=== PATIENT | male | born 1995 | race Caucasian/White ===

== ENCOUNTER 2018-11-03 09:00 | Outpatient (RCR) | payer OTHER, SELFPAY ==
--- NOTE | 2018-11-03 10:10 | BH.SGPN.GN ---
Behaviors/Verbalizations/Mental Status: [Client maintained good eye contact, casually and neatly dressed, appropriate grooming, motor activity WNL, speech appropriate rate and tone, mood anxious and dysthymic, affect constricted, thoughts linear and logical, no evidence of delusions or hallucinations reported or observed] Client Response/Progress/Benefit: [Client receptive of session and indicated connecting with topic of stress - did well to contribute to group discussion on what causes stress and the impacts of stress on mental health. Shared that stress can lead to maladaptive coping skills or increased anxiety to point of panic. Provided personal experience of overwhelming stress leading him to quit his job working for the [employer]. Client appeared to connect with information provided regarding differences between eustress vs. distress. Client was able to reflect upon current personal stressors through completion of stress identification worksheet. Current stressors include: money, mental health, having a child on the way, his future, and negative or intrusive thoughts. Benefitted from increasing awareness of current stressors and the impact they may be having on ability to manage mental health symptoms. Client recommended continued IOP tx to improve stress management, decrease intrusive thoughts, and prevent decompensation] Narrative Note: []
--- NOTE | 2018-11-03 10:15 | BH.SGPN.GN ---
Behaviors/Verbalizations/Mental Status: []Pt eye contact good, casually dressed, motor activity appropriate, speech normal rate and tone, mood anxious and dysthymic, constricted affect, thoughts linear and intact, no evidence of delusions or hallucinations. Client Response/Progress/Benefit: []Pt passive participant as evidenced by pt not contributing his thoughts and ideas to discussion, appeared to listen attentively to peers comments. Pt seemed to agree with peers about importance of being resilient so can bounce back from hardships or personal crises. Pt showed increased engagement in small group discussion about the various strategies that can help strengthen resilience. Pt seemed to benefit from increased awareness of what strategies can help strengthen resilience. Narrative Note: []
--- NOTE | 2018-11-03 11:15 | BH.SGPN.GN ---
Behaviors/Verbalizations/Mental Status: []Client alert and oriented, neatly dressed and groomed. Eye contact fair. Motor activity appropriate. Speech within normal limits. Affect flat, mood anxious. Thoughts linear, logical, no signs of hallucinations or delusions Client Response/Progress/Benefit: []Client responded somewhat well to session, quiet, but engaged in activity. Client participated in the activity. Client listened as the group reviewed strategies to increase resilience. Client nodded in agreement that using supports can help someone become more resilient. Client received a stress ball to help client remember the resilience factors. Client reported he would like to increase his resilience by increasing his acceptance of events in life. Client shared ?I want to change the way I view things.? Client appeared to benefit from setting a goal to increase his resilience. Client?s first day of PHP. Client to continue PHP to prevent decompensation and learn how to manage his OCD.
--- NOTE | 2018-11-03 14:58 | BH.MDN_ITS ---
Multi-Disciplinary Note - Note 45-min Individual Time Started:: 12:30 Date: 11/03/18 Purpose of session/treatment goals addressed:: The purpose of this session was to address client's current symptoms, stressors, and thoughts on his first day. Other topics included intrusive thoughts and expectations for therapy. Eye Contact:: Good Motor Activity:: Restless Appearance:: Casual Speech:: Tangential, Rapid Mood:: Anxious Affect:: Constricted Thoughts:: Circular, No evidence of hallucinations/delusions noted Staff Interventions:: Therapist used active listening and open-ended questions to explore client's current symptoms, stressors, and thoughts on his first day. Therapist provided clarification of PHP structure and helped client process his first experience in group. Therapist gathered information on client's treatment goals and gently challenged client on his expectations for progress. Therapist provided psychoeducation and gave client readings from the book Overcoming Unwanted Intrusive Thoughts. This therapist will not be client's ongoing PHP counselor. Therapist to communicate session with client's PHP therapist. Client Response:: Client responded somewhat well to session, reporting ambivalence to continuing the program as he feels more normal than other group members. Therapist and client processed client's thoughts and client was receptive to challenging his perspective. Client was encouraged to focus on his personal treatment goals while in PHP. Client reports he continues to have panic attacks, intrusive thoughts, and anxiety. Client wants to learn more about intrusive thoughts and was open to reading sections from the book brought to session by therapist. Client stated not having control of his thoughts is the hardest part for him. Client shared his thoughts will overtake him at times whic h causes client to become more existential and anxious. Client reported he has a hard time with uncertainty, lack of control, and being micromanaged. Client shared some symptoms and experiences that suggested potential bipolar traits. However, client unable to identify discrete episode of sreekanth and he is unsure if his potential symptoms were due to substance use. Further exploration may be needed. Client has a history of alcohol and marijuana use since he was 14 years old. Client admits to self-medicating with these substances to manage his anxiety. Client shared he stopped using two weeks ago because the marijuana was making his panic attacks worse. Client receptive to psychoeducation on intrusive thoughts. Client appeared to connect with myths about thoughts and was willing to read about myths about thoughts for homework. Risks/Concerns:: Client denies suicidal ideations, plan, and intent as of 11/03/18. Progress Toward Goals/Plan:: No progress to document as it is client?s first day in PHP. Client reported being skeptical about the group setting, but he reports willingness to continue due to wanting to get better as fast as possible. Therapist and client discussed setting realistic expectations for mental health progress. Client appears to be minimizing his symptoms as he reports being less severe than peers in the group, but reports frequent panic attacks, intrusive thoughts, and anxiety that impacts his ability to function. Client identified wanting to work on intrusive thoughts, managing anxiety, and increasing self- esteem as goals for treatment. Client to continue PHP to prevent decompensation and increase functioning. Time Stopped:: 13:09
--- NOTE | 2018-11-04 09:50 | BH.SGPN.GN ---
Behaviors/Verbalizations/Mental Status: []Pt eye contact good, casually dressed, motor activity appropriate, speech normal rate and tone, mood euthymic, congruent affect, thoughts linear and intact, no evidence of delusions or hallucinations. Reviewed client?s symptom tracker, no signs of suicidal ideation, plan, or intent as of today. Client Response/Progress/Benefit: []Client listened to others and shared thoughts and feelings. Client reported a mental health win is feeling more clear headed yesterday and today. Client attributed improved clarity to his medications starting to work. client shared another mental health win was being productive after leaving PHP yesterday. Client reported current stressor to be not making it to they gym yesterday and eating fast food which he typically doesn't do. Client identified being lazy as barrier to not making it to the gym yesterday. Client connected with peer that he struggles with following through with to-do lists as well because can easily become distracted with something that seems more interesting. Client to continue PHP treatment to decrease anxiety, increase utilization of healthy coping and prevent decompensation. Narrative Note: []
--- NOTE | 2018-11-04 10:10 | BH.SGPN.GN ---
Behaviors/Verbalizations/Mental Status: [Client alert and oriented, neat appearance. Eye contact good. Motor activity appropriate. Speech within normal limits. Affect constricted, mood anxious, depressed. Thoughts linear, logical, no signs of hallucinations or delusions. ] Client Response/Progress/Benefit: [Client receptive to session, provided some input, though a mostly passive participant. Actively listening throughout discussion on stress. Able to brainstorm with the group positive and negative aspects of stress on physical and mental health. Client shared connecting with discussion that even positive things can create stress in one?s life and provided personal example of becoming a parent.? Client participated in identifying current stressors impacting mental health. Client?s current stressors included; his mental and physical health, finances, avoidance, becoming a parent, work, intrusive thoughts, housing, and family stress. Client reports his stress jar is currently full, indicating that this is impacting his ability to cope with daily stressors and can result in increased agitation. Appeared to benefit from gaining awareness of own current stressors and learning about the impact stress has on overall wellbeing. Progress noted in improved engagement in group and insights provided. Recommend continued PHP tx to improve consistent use of healthy coping skills and to further decrease intensity of symptoms.] Narrative Note: []
--- NOTE | 2018-11-04 11:20 | BH.SGPN.GN ---
Behaviors/Verbalizations/Mental Status: []Client alert and oriented, casually dressed, hygiene good. Eye contact good. Motor activity restless, AEB shaking his leg. Speech within normal limits. Affect congruent, mood irritable, anxious. Thoughts linear, logical, no signs of hallucinations or delusions. Client Response/Progress/Benefit: []Client responded well to session, visibly irritated at the beginning of session, but then client was actively engaged. Client participated in the activity aimed to induce stress and client was providing ideas. The group did not accomplish the goal completely and client shared he has a hard time with getting too focused on completing everything. Client stated he also gets overwhelmed when he has too many stressors. Client reported that during the activity he would blame others in his mind when the group made a mistake. The group was able to make several connects to their personal lives from the activity to better deal with stress such as: using supports, making a plan, and adjusting actions. Client appeared to benefit from practicing in the moment emotional regulation skills and from gaining insight to strategies to manage stress. Progress limited as it is client's second day, but client was more engaged in session today than yesterday. Client to continue PHP to reduce intensity of symptoms and increase healthy coping skills.
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
--- NOTE | 2018-11-04 14:52 | BH.MDN ---
Multi-Disciplinary Note - Note 60-min Individual Time Started:: 12:25 Date: 11/04/18 Purpose of session/treatment goals addressed:: Purpose of session was to assess pt's current symptom and stressors. Other topics included gathering additional background information, solidfying treatment goals and providing homework. Eye Contact:: Fair Motor Activity:: Appropriate Appearance:: Casual Speech:: Appropriate Mood:: Anxious Affect:: Congruent Thoughts:: Linear, Logical, No evidence of hallucinations/delusions noted Staff Interventions:: Therapist used open ended questions to elicit pt's current symptoms and stressors. Therapist used probing questions to elicit additional background information. Therapist collaborated with pt to solidfy [facility] treatment goals. Therapist provided pt with homework to read handouts provided explaining how the brain creates intrusive thoughts. Client Response:: Client shared today went better compared to yesterday, explaining he is going to need to get used to the group environment. Client reported he is still uncertain how the group sessions will benefit him, but is looking forward to working on learning about his intrusive thoughts and how to manage the thoughts better. Client stated he has been dealing with OCD since he was a child. Client shared he doesn't have typical OCD in which he does physical checks, instead he does more mental checks because many of his obsessive thoughts are existential questions or questions that have no answers. Client stated he has sought more intensive therapy because his obessive thoughts have worsened in which he has been having a hard time maintaining a job. Client shared he quit his last job because he can't handle a 9-5 job behind a desk. Client reported he struggles with not being his own boss because he likes his freedom and doesn't like being micro-managed. Client reported he is worried about not being able to find a job that he doesn't hate because he has snese of urgency to make money since his girlfriend is . Client shared he needs to get better so he can provide for his family. Client stated for [facility] treatment goals he wants to have a better understanding of his intrusive thoughts, learn effective strategies to manage his intrusive thoughts and manage his anxiety more effectively. Client open to completing homework assignment of reading about how the brain creates intrusive thoughts. Risks/Concerns:: Client denies suicidal ideation, plan or intention to date. Progress Toward Goals/Plan:: Client showing progress with increased receptiveness to the [facility] program. Client expresses strong desire to get better, however client's sense of urgency to be better quickly could be barrier to progress because client could be setting philipp expectations for self. Client to continue PHP level of care to increase understanding about intrusive thoughts, decrease anxiety, and prevent decompensation. Time Stopped:: 13:25
--- NOTE | 2018-11-04 14:55 | BH.MTP ---
Master Treatment Plan - Patient Information Program Physician:: Dr. Crum Primary Therapist:: Carmen Abrams, [facility] - Psychiatric Diagnoses Psychiatric Diagnoses:: Obsessive Compulsive Disorder mixed obessional thoughts and acts. KARLI; history of depression, inactive. Cannabis use disorder, in early remission; alcohol use disorder, in early remission; history of polysubstance abuse Diagnosis Code(s):: F42.2 - Estimated LOS Estimated LOS (in weeks):: 2 Problem/Goal #1 - Problem/Goal #1 Stated Goal:: Client will reduce overall frequency, intensity, and duration of anxiety so that daily functioning is not impaired. Description of Barriers: Pt tends to minimize his symptoms and experiences which could be barrier to progress because sometimes leads pt to believe his problems aren't a big deal. Pt's distorted thought patterns, high expectations, difficulty accepting help and need to be viewed as a strong person could all be potential barriers to success. Functional Impact: Pt has had to quit his most recent job after 3 months because of daily panic attacks and unable to manage obessive thought patterns. Pt's anxiety and OCD have impacted pt's ability to maintain employment. Pt's social functioning has been impacted as well since pt has been attempting to maintain sobriety so pt doesn't have many social supports that don't use drugs or alcohol. Goal Relevant Strengths/Supports: Pt is intelligent, resilient, and verbalizes motivation to get better. Pt's girlfriend and mother are supportive to pt getting help. - Objectives Objective #1 Stated Objective: Client will learn and implement 2-3 calming skills to reduce overall anxiety and manage anxiety. Interventions: Therapist will teach the client calming/relaxation skills and help client connect ways to apply skills to daily life. Discharge Criteria: Client will be able to identify and utilize at least 2 calming strategies to manage anxious symptoms. Target Date: 11/13/18 Objective #2 Stated Objective: Pt will decrease anxious symptoms AEB pt?s score on the DSM 5 cross-cutting measure improve pt?s daily functioning. Interventions: Through groups and individual therapy, pt will be provided education about anxiety?s impact on body and common physiological reaction to anxiety. Therapist will teach pt appropriate breathing techniques and build healthy coping skills to manage daily anxieties. Discharge Criteria: Pt will have met this goal when pt?s score on the DSM 5 cross cutting measure for anxiety has been decreased and per pt?s report daily functioning has improved. Target Date: 11/13/18 Problem/Goal #2 - Problem/Goal #2 Stated Goal:: Reduce the frequency, intensity, and duration of obsessions and mental compulsions. Description of Barriers: Pt tends to minimize his symptoms and experiences which could be barrier to progress because sometimes leads pt to believe his problems aren't a big deal. Pt's distorted thought patterns, high expectations, difficulty accepting help and need to be viewed as a strong person could all be potential barriers to success. Functional Impact: Pt has had to quit his most recent job after 3 months because of daily panic attacks and unable to manage obessive thought patterns. Pt's anxiety and OCD have impacted pt's ability to maintain employment. Pt's social functioning has been impacted as well since pt has been attempting to maintain sobriety so pt doesn't have many social supports that don't use drugs or alcohol. Goal Relevant Strengths/Supports: Pt is intelligent, resilient, and verbalizes motivation to get better. Pt's girlfriend and mother are supportive to pt getting help. - Objectives Objective #1 Stated Objective: Pt will increase knowledge and understanding of obessive thoughts by being able to verbalize how the brain creates intrusive thoughts and identify at least 3 common intrusive thoughts pt experiences. Interventions: Therapist will provide psychoeducation about intrusive thoughts including information about how the brain creates intrusive thoughts. Therapist will also provide pt with readings about common intrusive/obessive thoughts. Discharge Criteria: Pt will have achieved this goal when can verbalize how the brain creates intrusive thoughts and identify at least 3 intrusive thought varieties pt experiences. Target Date: 11/13/18 Objective #2 Stated Objective: Pt will learn and practice at least two steps from the six steps to reduce distress over an obsessive thought (Recognize, Just thoughts, Accept and allow, float and feel, let time pass and proceed). Interventions: Therapist will teach pt about the 6 steps to reduce distress over a thought. Therapist will provide homework for pt to read more indepthly about the steps and encourage pt to practice each step on obessive thoughts as pt experiences them. Discharge Criteria: pt will have achieved this objective when can verbalize and implement at least 2 of the 6 steps to reduce distress over obessive thoughts. Target Date: 11/13/18
--- NOTE | 2018-11-05 10:20 | BH.SGPN.GN ---
Behaviors/Verbalizations/Mental Status: []Client alert and oriented, casually dressed, hygiene good. Eye contact good. Motor activity appropriate. Speech within normal limits. Affect constricted, mood irritable. Thoughts linear, logical, no signs of hallucinations or delusions. Client Response/Progress/Benefit: []Client responded well to session, quiet, but using good eye contact. Client shared a person can experience internal and external conflict. Client agreed with peers that unresolved conflict can lead to increased mental health symptoms. Client helped the group identified barriers to managing conflict such as emotions, body language, and tone of voice. Client helped the group identify the different types of conflict resolution styles. Client reported he mostly uses accommodating and competing styles to manage conflict. Client reported belief he is happy with how he manages conflict. However, after gentle challenging, client recognized he can stand up for himself more when talking with his father. Client appeared to benefit from gaining awareness of the different types of conflict resolution styles and how this impacts client?s mental health. Client to continue PHP to reduce anxiety and better manage OCD symptoms.
--- NOTE | 2018-11-05 11:20 | BH.SGPN.GN ---
Behaviors/Verbalizations/Mental Status: [Client maintained good eye contact. Motor activity is appropriate. Appearance is neat and casual. Speech an appropriate rate and tone. Mood is euthymic, anxious. Affect congruent. Thoughts are linear and logical. No evidence of psychosis.] Client Response/Progress/Benefit: [Client actively engaged participant in group discussion and did well to contribute throughout to activity portion. He did well to work with group on identifying connections between barriers and supports for conflict resolution used in activity with personal approach to conflict. Client reflected on personal conflict style and indicated he can relate to the accommodating style of conflict resolution. Client went on to indicate ?I don?t always act as competing as I want? and expressed a desire to improve in his ability to advocate for himself. Client worked with the group to identify barriers to effectively managing conflict and indicated barriers may include ?different values? and differences in priorities. Client able to connect with input provided by fellow participants and did well to work with the group on identifying strategies to promote better management of conflict. Reported that communicating expectations would be helpful in improving conflict management. Benefited from group as he was able to increase insights regarding conflict and conflict resolution. Client displaying progress in improved levels of input throughout discussion. Client recommended continued IOP tx to prevent decompensation and improve ability to challenge intrusive thinking.] Narrative Note: []
--- NOTE | 2018-11-05 15:37 | BH.MDN ---
Multi-Disciplinary Note - Note 45-min Individual Time Started:: 12:20 Date: 11/05/18 Purpose of session/treatment goals addressed:: Purpose of session was to assess pt's current symptoms and stressors. Other topics included review and process material read for homework, set daily goal/plan, and provided homework to read handouts about common strategies that don't help intrusive thoughts. Eye Contact:: Good Motor Activity:: Appropriate Appearance:: Casual Speech:: Appropriate Mood:: Anxious Affect:: Congruent Thoughts:: Linear, Logical, No evidence of hallucinations/delusions noted Staff Interventions:: Therapist used open ended questions to elicit pt's current symptoms and stressors. Therapist reviewed and processed homework with pt. Therapist explained the brain's natural alarm system and how intrusive thoughts trigger the brain's alarm system unnecessarily. Therapist elicited pt's daily goals and plan for rest of today. Provided homework for patient to read provided information about common strategies that have been found to be ineffective for intrusive thoughts. Client Response:: Client reported he really enjoyed reading the information about how the brain creates intrusive thoughts. Client shared previously he couldn't understand why certain thoughts lead to a fear response which results in client needing to reassure himself or do research to reduce the fear. Client reported having more knowledge of how and why his thoughts impact him so much has normalized his experience. Client reported yesterday he wrote down some thoughts he had throughout the day. Client stated he identified he has a fear that his thoughts will become so distorted that he won't be able to get back to his normal sense. Client reported he also has trouble accepting his OCD diagnosis, which he connected with his desire to present to others that he has everything together. Client stated his image his very important to him because he was raised to believe it matters what others think about him. Client reported he recognizes his OCD tends to revolve around why questions, needing to find answers to questions that often don't have answers. Client shared one obsessive thought will trigger other obsessive thoughts. Client stated yesterday he did get stuck on the worry that he was losing reality. Client reported he used a grounding tool and breathing to help him reduce the anxiety. Client shared the anxious situation lasted about 15 minutes. Client stated today he plans to do some house chores, get more information about potential job or educational opportunities and do yoga. Client agreeable to read handouts about strategies that have been found to be ineffective for intrusive thoughts. Risks/Concerns:: Client denies suicidal ideation, plan or intention to date. Progress Toward Goals/Plan:: Client progressing with increased knowledge and understanding between connection of brain's alarm system and intrusive thoughts. Client also showing progress with utilizing breathing and grounding tools to manage anxiety in the moment. Client completing assigned homework, which psychoeducation seems to help normalize client's experience. Client to continue PHP level of care to increase understanding of intrusive thoughts, manage anxiety and prevent decompensation. Time Stopped:: 13:00
--- NOTE | 2018-11-06 09:05 | BH.SGPN.GN ---
Behaviors/Verbalizations/Mental Status: [] Eye contact is good. Motor activity is appropriate. Appearance is casual. Speech is Appropriate. Mood is depressed. Affect is flat. Thoughts are linear and logical. No evidence of psychosis. Reviewed daily check in sheet with no reports of suicidal ideations or intent. Client Response/Progress/Benefit: [] Pt was an active participant in group discussion. Emotion for today is tired and positive. Pt reports that since starting PHP he is feeling less anxious and more like himself. States that he seems more clear-headed. He attributes this to individual session with program therapist and increased education. Participated in group discussion regarding mind-reading and other cognitive distortions which impact mental health. Progress noted per pt report. Benefited from group discussion and support. Will continue in PHP to stablize anxiety and improve daily functioning. Narrative Note: []
--- NOTE | 2018-11-06 11:16 | BH.SGPN.GN ---
Behaviors/Verbalizations/Mental Status: [Client alert and oriented, casually dressed and appropriately groomed. Eye contact fair to good at times distracted by his phone. Motor activity WNL. Speech appropriate rate and tone. Affect congruent, mood euthymic. Thoughts linear, logical, no signs of hallucinations or delusions.] Client Response/Progress/Benefit: [Client responded well to session, willing to participate in both group discussion and challenge activity. Client worked with group to discuss the barriers faced in activity and connected this to barriers regrading change. Discussed that being open to continuing to try things is important but reflected that at times he personally struggles with patience. Client benefited from gaining information on Decisional Balance technique in overcoming ambivalence to change. Client able to apply this strategy to identify the pros and cons regarding a mental health change he is currently considering. Client reports considering making strides towards deciding on ?what?s next? for him as he has been debating between going back to school and becoming self-employed. Progress made in client ability to identify the importance of applying patience when faced with potential changes. Client to continue PHP to reduce negative self-talk and anxiety, as well as prevent decompensation. ] Narrative Note: []
--- NOTE | 2018-11-06 12:30 | HP.PCM_ITS ---
History and Physical Date of Admission: 11/03/18 Chief Complaint: The patient is a 23-year old male referred by his primary care doctor, and is currently in the partial hospitalization program at [facility]. He has a long history of problems with anxiety, depression, and obsessive-compulsive symptoms. He has a history of substance abuse. History of Present Illness: The patient states that his worst problem is a long history of intrusive, unwanted thoughts. He estimates that his symptoms started when he was about 6 years old. He used to have frequent exaggerate health concerns when he was younger. He used to have unfounded convictions that he had diabetes, leukemia or a heart condition. In more recent years, he has had a variety of intrusive thoughts and ruminations. He has had obsessions about the afterlife, of the meaning of life, and other existential worries. He has had worries that he would become suicidal and has had unwanted thoughts of . He was unable to stop the thoughts. There may have been some progress on his current medication of Celexa, as well as work in individual therapy. Patient also reports a long history of problems with anxiety for most of his life. He has always been a worrier with a tendency to worry about many different things. His level of worry has decreased with treatment. He also reports a history of depression in the past and has received treatment for depression. His depression is currently under control. Past Psychiatric History: The patient has never been admitted to a psychiatric hospital, and he denies any history of suicide attempts. He has received psychiatric medicines from a nurse practitioner. He has seen therapists in the past. Past medicines have included Lexapro, Zoloft and Effexor. Current Psychiatric Medications: Celexa 15 mg daily Medical History: He is healthy. Allergies: Zithromax Family Psychiatric History: Patient said that OCD runs in the family. An aunt and his paternal grandfather have had OCD symptoms. Also alcohol and marijuana abuse run in the family. Personal/Social History: The patient's parents when he was 20 years old. He was raised in a stable home. He has a good relationship with his parents. He has 1 sister. The patient received a BA in finance, and is pursuing an MA degree in economics. He is currently on a leave from work. 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 He is currently being supported through savings and by his girlfriend. He has been together with his girlfriend for 2 years, and reports a good relationship with her. She is currently . Substance abuse history: The patient said that he began drinking alcohol at age 9 and first became intoxicated at age 12. He drank heavily in college. Currently drinks socially and occasionally becomes intoxicated with friends. He began to smoke marijuana at age 14. His last use was October 23 he was smoking on occasion in high school and college and then at age 20 he was a daily smoker for 3 years. In the past he has also used cocaine, and has abused cough syrup and Adderall. Review of Systems: Psychiatry: No significant depression; improving anxiety and OCD symptoms. He is not suicidal. No psychosis. He is cognitively intact. Constitutional: He is of average weight, and his weight has been steady. His energy level is good. Neuro: No headaches, no focal weakness. All other systems reviewed and are negative. Examination: Patient presents as a pleasant, cooperative male of average build who is properly groomed. He demonstrates good social skills. Vital signs: Height 5 foot 11 inches, weight 185 pounds, respirations 15. Musculoskeletal: No muscle weakness or joint pain. His speech is fluent and spontaneous. His language is intact. His judgment and insight are intact. He is alert and oriented x3. His affect is cordial and appropriate. His recent and remote memory are intact. He has normal attention span and concentration. He has normal thought processes and abstract reasoning. His associations are intact. There are no hallucinations or delusions and he is not suicidal. He demonstrates normal age-appropriate fund of knowledge. Mental Status Examination: The patient presents as a pleasant, cooperative male of average build who is properly groomed. He demonstrates good social skills. His thoughts are logical and coherent. No current depression. He is not suicidal. There is no psychosis. He is cognitively intact. Summary: Patient is a 23-year old male with a long history of OCD symptoms, primarily obsessions. He has KARLI. He has a history of depression, currently inactive. H/o alcohol use disorder, and polysubstance abuse. Diagnoses: [] [place] I: Obsessive-compulsive disorder; KARLI; history of depression, inactive. Cannabis use disorder, in early remission; alcohol use disorder, in early remission; history of polysubstance abuse [place] II: None [place] III: Healthy Plan: I am continuing Celexa 15 mg daily. Patient will participate in the partial hospitalization program. I will see him again as needed.
--- NOTE | 2018-11-06 12:31 | BH.DR.ITP ---
Initial Treatment Plan - Patient Information Visit Information: ADMISSION DATE: 11/03/18 EXPECTED LOS: 4-6 weeks Diagnoses:: OCD; KARLI; history of polysubsance abuse/dependence - Problems/Symptoms Problem #1:: OCD Symptom:: intrusive thoughts, ruminations, obsessions Problem #2:: anxiety Symptom:: Excessive anxiety, worry, overthinking. Problem #3:: History of polysubstance abuse/dependence Symptom:: History of alcohol, MJ, other drugs, lack of healthy coping skills
--- NOTE | 2018-11-06 16:04 | BH.MDN ---
Multi-Disciplinary Note - Note 45-min Individual Time Started:: 12:06 Date: 11/06/18 Purpose of session/treatment goals addressed:: Purpose of session was to assess pt's current symptoms and stressors. Other topics: review homework, discuss progress since starting PHP, identifying plan for continued treatment, and provided homework to read about strategies that are helpful for intrusive thoughts. Eye Contact:: Good Motor Activity:: Appropriate Appearance:: Casual Speech:: Appropriate Mood:: Anxious Affect:: Congruent Thoughts:: Linear, Logical, No evidence of hallucinations/delusions noted Staff Interventions:: Therapist used open ended questions to elicit pt's current symptoms and stressors. Therapist reviewed and processed pt's homework from last session about ineffective strategies for intrusive thoughts. Therapist elicited pt's thoughts about treatment progress since starting PHP and collaborated with pt to develop plan for continued treatment. Therapist provided pt homework to read provided handouts about strateiges that can help with intrusive thoughts. Client Response:: Client reported he enjoyed the reading from last session about why certain strategies he has tried haven't been effective with his intrusive thoughts. Client shared he connected with the three factors (sticky mind, paradoxial effort, and entanglement) that get in the way of managing intrusive thoughts. Pt stated he has done the paradoxical effort when he tells himself to not think because then it results in more thinking. Pt reported he also connected with the various ineffective strategies because many of them he has tried and have been suggested to him by family members and friends. pt stated he deflinitely seeks reassurance from others which he recognizes now is not truly helping him but rather intensifying the intrusive thoughts. Pt identified since starting PHP he has noticed decrease in his anxiety, improved ability to catch his panic symptoms early, and better understanding of his pure obsessional OCD. Pt stated he hasn't found group to be as helpful as individual, but recognizes he needs help in order to get back to his desired functioning. Pt agreed with therapist it would be helpful to find a outpatient therapist that specializes in Exposure Response and Prevention (ERP) therapy which has been found to be effective for OCD. Pt stated he would like to do one more week of PHP then would like to discharge from program and do outpatient counseling with a therapist that does ERP. Risks/Concerns:: Pt denies suicidal ideation plan or intention to date. Progress Toward Goals/Plan:: Pt has made progress with reporting decrease anxiety, improved awareness, and increased understanding of diagnosis. Pt also following through with compelting homework daily, incorporating self-care activities into his daily routine and able to be complete tasks on his to-do lists. Pt continue to struggle with intrusive thoughts and panic attacks, but to a lesser degree. Pt to continue PHP level of care to decrease anxiety, increase healthy coping and prevent decompensation. Time Stopped:: 13:00
--- NOTE | 2018-11-09 09:12 | BH.SGPN.GN ---
Behaviors/Verbalizations/Mental Status: []Pt eye contact good, casually dressed, motor activity appropriate, speech normal rate and tone, mood anxious, congruent affect, thoughts linear and intact, no evidence of delusions or hallucinations. Client Response/Progress/Benefit: []Pt listened attentively to others, shared thoughts and feelings. Pt reported one mental health positive was being able to manage a oncoming panic attack by telling himself his physical symptoms were just part of the panic attack. Pt shared another mental health positive was going to [place] with his girlfriend for a relaxing evening. Pt reported he is stressed about having many options for either future schooling or career paths, but is stuck on which decision will have the best outcome for himself and family. Pt seemed to benefit from expressing thoughts and feelings. Pt to continue PHP level of care to maintain gains, decrease intrusive thoughts, and prevent decompensation. Narrative Note: []
--- NOTE | 2018-11-09 10:20 | BH.SGPN.GN ---
Behaviors/Verbalizations/Mental Status: []Client alert and oriented, casually dressed. Eye contact good. Motor activity appropriate. Speech within normal limits. Affect constricted, mood irritable. Thoughts linear, logical, no signs of hallucinations or delusions. Client Response/Progress/Benefit: []Client responded well to session, quiet, but nodding, and providing occasional feedback. Client nodded that ineffective communication can negatively impact mental health and relationships. Client nodded that there are people in his life that do not communicate effectively which causes conflict. Client helped the group discuss the different communication styles including the payoffs and costs of each. Client shared he tends to be mostly aggressive or assertive. Client stated he can also use sarcasm which can be passive-aggressive. Client acknowledged that although being aggressive gets a person?s needs met short term, it can have negative impacts on relationships. Client appeared to benefit from increasing awareness of how communication impacts mental health. Progress noted as client reported reduced anxiety, but he continues to struggle with managing intrusive thoughts. Client to continue PHP to further promote gains and increase ability to manage intrusive thoughts.
--- NOTE | 2018-11-09 11:26 | BH.SGPN.GN ---
Behaviors/Verbalizations/Mental Status: [Client alert and oriented, casual and neat appearance. Eye contact good. Motor activity appropriate. Speech within normal limits. Affect congruent, mood anxious and dysthymic. Thoughts linear, logical, no signs of hallucinations or delusions.] Client Response/Progress/Benefit: [Client active participant AEB providing some contributions and engagement throughout. Group worked to further review individual communication style and how that impacts mental health. Client took a passive but attentive role during the activity that encouraged clients to practice clear, specific communication. Client agreed that is appeared helpful when the group provided clear and specific details during the activity. Group identified strategies that helped the group communicate more effectively during the activity. Client identified his communication goal which is to practice being more willing to communicate with supports rather than minimizing or shutting down. Client seemed to benefit from increased insight into how communication style impacts mental health and identifying strategies for increasing effective communication skills. Progress noted as client reports increased follow through with challenging negative/intrusive thoughts. Will continue PHP tx to prevent decompensation, improve mood stability, and promote consistent use of coping skills.] Narrative Note: []
--- NOTE | 2018-11-09 14:52 | BH.MDN ---
Multi-Disciplinary Note - Note 60-min Individual Time Started:: 12:28 Date: 11/09/18 Purpose of session/treatment goals addressed:: Purpose of session was to assess pt's current symptoms and stressors. Other topics: reviewed homework, psychoeducation about childhood trauma, and challenged mistaken beliefs. Eye Contact:: Good Motor Activity:: Appropriate Appearance:: Casual Speech:: Appropriate Mood:: Anxious Affect:: Congruent Thoughts:: Linear, Logical, No evidence of hallucinations/delusions noted Staff Interventions:: Therapist used open ended questions to elicit pt's current symptoms and stressors. Therapist reviewed and processed homework about strateiges to help intrusive thoughts. Therapist provided psychoeducation about childhood trauma. Therapist gently challenged pt's mistaken beliefs. Therapist provided homework for pt to read about common barriers that get in the way of using strategies to manage intrusive thoughts. Client Response:: Pt reported he had an overal good weekend because he was able to be productive and able to manage his anxiety at times. Pt shared he completed his homework of reading about strategies that can help him manage his intrusive thoughts. Pt shared acceptance that he has intrusive thoughts is challenging for him becuase he likes to have control and by accepting his intrusive thoughts he feels out of control. Pt stated he did try the various strategies by recognizing certain thoughts were intrusive and reminding himself a thought is a thought versus looking for validation or fighting the intrusive thought. Pt reported he knows he needs to keep practicing, but has hope. Pt stated he went to his dad's on Friday which pt reported can be a lot because his dad can say unhelpful things to pt. Pt stated his dad told pt he wasn't smart or disciplined enough to pursue a degree in psychology to become a researcher or professor. Pt reported he tries to not let his dad's comments get to him, but recognizes sometimes it's hard. Pt shared he tries to only see his dad in doses because his dad is hard to be around at times. Pt connected with the trauma education and how childhood trauma can impact the brain and behavior. Pt minimized what he experienced as a child because reported he could have had it worse. Pt shared his family was financially wealthy so pt was able to have whatever he wanted, which is why pt doesn't think what he experienced as a child is very traumatic. Pt admitted he does minimize some things he's experienced. Pt shared although he knows his dad isn't the best person to be around, he doesn't want to cut the relationship off because he's had friends lose their dad to addiction and pt doesn't want to lose his dad to addiction and regret not spending time with his dad when he had the chance. Pt reported he is able to recognize when his dad is in an altered state of mind and is getting better at not being around dad when dad is using drugs. Pt stated over the weekend he thought about how his self-image has changed since his mental health worsened. Pt reported he used to be the toughest and most successful. Pt stated now he feels weak because his OCD and anxiety have impacted his ability to function. With assistance from therapist pt connected that the messages he recieived as a child could have shaped his veiw of what is strong vs weak. Pt stated his family always made it clear that how others perceived him to be important. Pt agreeable to complete homework for next session. Risks/Concerns:: Pt denies suicidal ideation, plan or intention to date. Progress Toward Goals/Plan:: Pt demonstrating progress AEB pt reporting being able to manage his anxiety at times over the weekend. Pt has increased awareness and understanding of his intrusive thoughts. Pt continuing to struggle with distorted thoughts, negative core beliefs and obsessive thoughts. Pt to continue PHP level of care to decrease anxiety, increase utilization of healthy coping, and prevent decompensation. Time Stopped:: 13:30
--- NOTE | 2018-11-10 09:05 | BH.SGPN.GN ---
Behaviors/Verbalizations/Mental Status: []Client alert and oriented, casually dressed, hygiene good. Eye contact good. Motor activity restless AEB shaking leg. Speech within normal limits. Affect constricted, mood euthymic. Thoughts linear, logical, no signs of hallucinations or delusions. Reviewed client?s symptom tracker, no risk for suicidal ideation, plan, or intent as of 11/10/17. Client Response/Progress/Benefit: []Client responded well to session, quiet, but participating when promoted. Client stated he feels ?improved? today as client reports progressing on his treatment goals of reducing anxiety. Client shared the work he has been doing with his individual IOP therapist on coping with intrusive thoughts has been very helpful. Client stated moving forward his goal is to figure out what he wants to do as a career. Client shared he is starting to realize that ?money isn?t everything? and that taking take of his mental health is important too. Client?s current barrier is feeling like ?everything is time sensitive? as client reports he does not have a lot of time to figure out his next step. Client received supportive statements from peers and appeared grateful as shown by nodding and saying thank you. Progress noted as client self-reports reduced anxiety and increased ability to manage intrusive thoughts. Client to continue PHP to continue increase coping skills to manage anxiety.
--- NOTE | 2018-11-10 10:12 | BH.SGPN.GN ---
Behaviors/Verbalizations/Mental Status: [Eye contact is good. Motor activity is appropriate. Appearance is casual. Speech is Appropriate. Mood is dysthymic, anxious. Affect is constricted. Thoughts are linear and logical. No evidence of psychosis. ] Client Response/Progress/Benefit: [Pt was an engaged participant in activity as evidenced by pt providing some input and listened to others. Group worked together to come up with common negative forces in their lives which can hold them back from growth. Negative forces included: toxic relationships, negative thoughts, low motivation, and past experiences. Group then worked together to identify common positive forces which help us grow. These included: Healthy coping skills, positive support, self-care, patience, and therapy. Pt reported that focusing on small ways to improve physical health can aid in improving positive forces as well. Pt was attentive during psychoeducation on the importance of utilizing many aspects of positive forces to help one grow. Benefited from group with increased insight and awareness on the impact of negative and positive forces on mental wellness.] Narrative Note: []
--- NOTE | 2018-11-10 11:18 | BH.SGPN.GN ---
Behaviors/Verbalizations/Mental Status: [] Pt eye contact good, casually dressed, motor activity appropriate, speech normal rate and tone, mood euthymic, congruent affect, thoughts linear and intact, no evidence of delusions or hallucinations. Client Response/Progress/Benefit: []Client listened attentively to peers and contributed thoughts and ideas to discussion. Client identified positive forces that help him progress toward goals to include: desire to achieve, wanting to have a good life, wanting to make a difference, loved ones, and self-satisfaction. Client identified negative forces that hold him back from progress to include: fear of failure, barriers (money, time, and family), no motivation, anxiety and depression. Client stated wanting to have a good life and barriers (money, family, and time) to be the forces in his life that have the most power currently. Client seemed to benefit from increased awareness of his personal positive and negative forces in life. Client to continue PHP level of care to decrease anxiety, decrease intrusive thoughts and prevent decompensation. Narrative Note: []
--- NOTE | 2018-11-11 15:37 | BH.MDN_ITS ---
Multi-Disciplinary Note - Note 60-min Individual Time Started:: 12:25 Date: 11/04/18 Purpose of session/treatment goals addressed:: Purpose of session was to assess pt's current symptom and stressors. Other topics included gathering additional background information, solidfying treatment goals and providing homework. Eye Contact:: Fair Motor Activity:: Appropriate Appearance:: Casual Speech:: Appropriate Mood:: Anxious Affect:: Congruent Thoughts:: Linear, Logical, No evidence of hallucinations/delusions noted Staff Interventions:: Therapist used open ended questions to elicit pt's current symptoms and stressors. Therapist used probing questions to elicit additional background information. Therapist collaborated with pt to solidfy [facility] treatment goals. Therapist provided pt with homework to read handouts provided explaining how the brain creates intrusive thoughts. Client Response:: Client shared today went better compared to yesterday, explaining he is going to need to get used to the group environment. Client rep orted he is still uncertain how the group sessions will benefit him, but is looking forward to working on learning about his intrusive thoughts and how to manage the thoughts better. Client stated he has been dealing with OCD since he was a child. Client shared he doesn't have typical OCD in which he does physical checks, instead he does more mental checks because many of his obsessive thoughts are existential questions or questions that have no answers. Client stated he has sought more intensive therapy because his obessive thoughts have worsened in which he has been having a hard time maintaining a job. Client shared he quit his last job because he can't handle a 9-5 job behind a desk. Client reported he struggles with not being his own boss because he likes his freedom and doesn't like being micro-managed. Client reported he is worried about not being able to find a job that he doesn't hate because he has snese of urgency to make money since his girlfriend is . Client shared he needs to get better so he can provide for his family. Client stated for [facility] treatment goals he wants to have a better understanding of his intrusive thoughts, learn effective strategies to manage his intrusive thoughts and manage his anxiety more effectively. Client open to completing homework assignment of reading about how the brain creates intrusive thoughts. Risks/Concerns:: Client denies suicidal ideation, plan or intention to date. Progress Toward Goals/Plan:: Client showing progress with increased receptiveness to the PHP program. Client expresses strong desire to get better, however client's sense of urgency to be better quickly could be barrier to progress because client could be setting philipp expectations for self. Client to continue PHP level of care to increase understanding about intrusive thoughts, decrease anxiety, and prevent decompensation. Time Stopped:: 13:25
--- NOTE | 2018-11-12 16:03 | BH.MDN_ITS ---
Multi-Disciplinary Note - Note 60-min Individual Time Started:: 10:20 Date: 11/12/18 Purpose of session/treatment goals addressed:: Purpose of session was to assist pt with utilizing in the moment coping and calming strategies to help manage pt's anxiety and panic. Other topics included: reviewing homework about varieties of intrusive thoughts, psychoeducation about common physiological symptoms to panic attack, and brief discussion about cognitive distortions. Eye Contact:: Good Motor Activity:: Restless Appearance:: Casual Speech:: Rambling Mood:: Anxious, Depressed, Other - tearful Affect:: Congruent Thoughts:: Racing, No evidence of hallucinations/delusions noted Staff Interventions:: Therapist assisted pt with breathing techniques and walked patient through a engaging senses grounding tool. Therapist provided psychoeducation about common physiological symptoms of a panic attack, helping pt understand why his body reacts in certain ways when having panic attack. Therapist processed pt's anxiety triggers from today. Therapist gently ch allenged pt's negative and distorted thought patterns throughout session. Therapist reviewed homework from last session about the varieties of intrusive thoughts. Provided pt with brief overview of cognitive distortions and gave homework for pt to read about the distortions and identify which distortions he connects with the most. Encouraged pt to focus on self-care today and small goals. Client Response:: Pt shared he was feeling very panicky since he work up. Pt reported he was able to push through this morning, but then became triggered once he was in group again. Pt reported he went outside during group to get fresh air and engage his senses. Pt shared however once he rejoined group he started to get anxious again. Pt reported he is frustrated because he was doing so well, but now is worried if he can get better. With challenging by therapist pt able to recognzie he is in a negative space and struggling to identify anything positive. Pt able to identify progress he has made with being able to manage his panic attacks recently. Pt stated he struggles when his obessive thoughts start racing because then he has to wait it out because the obessive thoughts intensify his panic and typical coping strategies don't work. Pt reported he has been working on recognizing and accepting his intrusive thoughts, but today has been a challenge because he feels exhausted. Pt shared he recognizes now that he was put too much responsibility back on himself which has led him to feeling overwhelmed again. Pt reported his sense of urgency to make money and find a job pushed him to take too much on at once instead of focusing on his mental health. Pt tearful, but held back his tears, when talking about not being able to be strong enough to get through his thoughts. Pt stated he doesn't like to cry because he doesn't want others to think he is weak. Pt connected this need to appear strong to messages he recieived from his father when he was a kid. Pt open to doing a guided meditation to help pt engage his senses and bring his focus to the moment. After the guided meditation pt stated he felt calmer, but stated the racing thoughts started back up after the meditation was done. Pt connected with the different physiological symptoms that can occur when having a panic attack. Pt stated when at the gym he has will have panic like symptoms becasue feels like he can't swallow. With assistance from therapist able to connect that the gym is a trigger because now he fears having a panic attack when he goes. Pt recognizes thus far he has been able to manage his panic symptoms while at the gym. Pt stated he will continue to practice using his grounding tools when he first starts to notice signs of increased anxiety. During session pt kept making comments that he felt like burden for taking up this health technical writer's time because he was sure this health technical writer had better things to do. When further explored these thoughts pt stated throughout his life he has been the strong one and never had to rely on others for help, but now feels like a burden because he needs help from others. Pt reviewed the homework he had from previous session in which he read about the varieties of intrusive thoughts. Pt connected with many of the types of intrusive thoughts including: self-harm thoughts, big issue thoughts, purpose of life thoughts, questioning beliefs, questioning reality, losing-your mind thoughts, mental checking, doubts in relationship, scrupulous thoughts, crazy or humilating thoughts, meta-worry, and somatosensory thoughts. Pt identified the most common and impactful intrusive thoughts he is experiencing currently are somatosensory, big question thoughts, and losing-your mind thoughts. Pt able to connect how his intrusive thoughts, even when as a child, impacted how he acted or the choices he made. Pt identified it being helpful to have his experience normalized, realizing several of the examples were almost exact experiences for himself. Pt open to homework about identifying which cognitive distortions he most often uses. Risks/Concerns:: Pt denies suicidal thoughts, plan or intention to date. Progress Toward Goals/Plan:: Pt demonstrating progress as evidneced by pt asking for help instead of trying to push through and mask how he was truly feeling. Pt experiencing increased anxious and obsessive thoughts which made it difficult for pt to be in group setting. Pt did ask IOP therapist for help was willing to practice guided mediation, engage his senses and talk about how he was feeling. Today's session brought to light pt's negative and distorted thought patterns, which pt seemed to have masked thus far in his treatment. Pt to continue PHP level of care to decrease anxiety and prevent decompensation. Time Stopped:: 12:00
--- NOTE | 2018-11-13 09:10 | BH.SGPN.GN ---
Behaviors/Verbalizations/Mental Status: []Client alert and oriented, neatly dressed and groomed. Eye contact good. Motor activity restless- shaking his legs. Speech within normal limits. Affect constricted, mood irritable, disappointed. Thoughts linear, logical, no signs of hallucinations or delusions. Reviewed client?s symptom tracker, no risk for suicidal ideation, plan, or intent as of 11/13/18. Client Response/Progress/Benefit: [] ZD- Client responded well to session, appearing agitated, but open to support from peers. Client reports feeling ?angry? today because he recently experienced panic attacks yesterday and ?I thought I was over that.? Client stated he feels frustrated at the setback as he thought he was making progress on managing his anxiety symptoms. Client was receptive to supportive statements from peers about progress not being linear. Client able to recognize that coming to [facility] today as progress ?because I used to avoid places I?ve had panic attacks at.? Client?s other mental health positive today was not having anymore panic attacks after yesterday. Client appeared to benefit from receiving support from peers and reframing his recent setback. Client to discharge from [facility] today as he has made progress and would like to continue more specific OCD treatment.
--- NOTE | 2018-11-13 10:12 | BH.SGPN.GN ---
Behaviors/Verbalizations/Mental Status: [Client alert and oriented, casually dressed and groomed. Eye contact good. Motor activity appropriate. Speech within normal limits. Affect constricted, mood anxious, dysthymic. Thoughts linear, logical, no signs of hallucinations or delusions. ] Client Response/Progress/Benefit: [Client responded well to session, attentive during discussion, though remaining mostly passive. Client connected with the group topic of crisis and did well to work with group to define crisis. Group identified examples of potential crisis to include unexpected loss, overwhelming stress, and hardships out of one?s control. Connected with discussion on how coping with crisis by using unhealthy coping skills could lead to additional personal crisis. Client shared personal crisis occurs when we have more stress than we can handle or lack ability to see alternative solutions. Group identified unhealthy coping skills to include; substance use, toxic relationships, overeating, avoidance, anger, and giving up. Group identified warning signs for crisis which included; isolating, increased anxiety, avoidance, agitation, minimizing, and impatience. Client completed the personal warning signs worksheet and identified crisis warning signs to include; negative thinking, trying to take control, and irritability. Benefited from group by increasing awareness of crisis and personal warning signs. Progress noted as client displaying increased levels of engagement and report of more consistent application of skills learned. Recommended continued tx to improve skill application and reduce sx severity.] Narrative Note: []
--- NOTE | 2018-11-13 12:29 | BH.NA_ITS ---
Physical Data - Height/Weight Height: 1.8 m Weight:: 83.325 kg Weight in Pounds: 183.7 lbs Current Medication Compliance - Medication Compliance Do you take your medication as prescribed?: Yes Do you need assistance with taking medication?: No Have you had side effects from medication?: No Nutritional History - Appetite Nutritional Instructions:: If client shows signs of a swallowing problem, weight change of 10 pounds or more in the last month, or is on a diabetic diet, the physician will review and request a dietitian consult, as appropriate. All unintentional weight loss will be referred to the physician for decision on need for dietitian consult. Describe your appetite:: Fair - appetite does decrease in periods of increased anxiety Have you noticed a change in your eating habits lately?: No Functional Assessment - Activities Motor Activity:: Functional Sensory/Communication Assess - Hearing Problems Do you have any hearing problems?: Adequate - Communication Problems Do you have difficulty understanding what people are saying?: No Do you have trouble putting your thoughts into words or expressing what you want to say?: Yes Do people ever have trouble understanding what you say?: No What is your primary language?: Guyanese Learning Assessment - Education What is your level of education?: Bachelor Degree - Learning Barriers Learning Barriers:: Ready to learn Medical Problems/History - Sexual History Are you sexually active? If so, what type of protection do you use?: Yes Do you have any problems with sexual functioning?: No - Family History Family History: Family History (Last Updated 11/13/18 @ 12:26 by QUANG Givens RN) Other Alcohol addiction Anxiety Depression OCD (obsessive compulsive disorder) Surgical History - Surgical History Have you had any surgeries? If so, list type and date:: No Substance Abuse - Substance Abuse Please describe substance abuse in the last 30 days:: Client endorses a recent history of alcohol, marijuana, and cocaine abuse. He is also a former cigarette smoker. Mental Status Summary - Mental Status Significant Findings/Observations on Appearance and Mood:: Demetrius is A&Ox4, casually dressed with good grooming and hygiene. He makes good eye contact and is cooperative with interview. Activity is normal. Speech is clear with normal rate and volume. Moderate anxiety and anhedonia noted. Affect is mood congruent. Logical associations and normal process. Average knowledge. Denies hallucinations and HI. He specifically denies SI, but has had passive thoughts of and frequently has intrusive existential thoughts. Suicide Assessment - Suicidal Ideation Are you currently or have you been suicidal in the past?: Yes Suicidal Intentional Rating Scale (SIRS): Suicidal thoughts (past) Physician Notification: If Active suicidal thoughts/Will not contract for safety is checked, contact physician and document in the Physician Notification section below. Past Psychiatric History - MH Treatment Hx Past Psychiatric Medications:: Zoloft, Lexapro, Effexor ECT Therapy Details:: N/A Describe (age, circumstance, etc) any past hospitalizations: 6 years old - recalls being anxious about going to school and begging his parents to stay home. Fall Risk Assessment - Age Age: Less than 60 - Mental Status Mental Status: Willing & able to ask for assistance when needed - Physical Status Physical Status: No problems - Impairments Impairments: None - Elimination Elimination: Continent AND independent - Gait or Balance Gait or Balance: Walks independently - Hx of Falls History of falls in the past 6 months: No known history - Medications/Substances Psychotropics:: Antidepressants Medications/substances used within the past 24 hours or ordered to administer: 1-2 of the medications/substances listed above - Total Score Total Points:: 1 Physician Notification - Physician Notification Physician Notified: Last Crum Method of Notification: Face to Face Comments: treatment planning discussion RN Summary of Impressions - Impressions Recommendations: Include psychiatric and medical issues, treatment planning recommendations, and discharge planning needs. Impressions: Psychiatric Issues: anxiety w/ panic, OCD Impression: Medical Issues: N/A Impression: General Medical Conditions: N/A - Level of Care How do the client's current symptoms and functional deficits support need for this level of care?: Client describes a significant, progressive decompensation in his mental health for the past month or two. He recently quit abusing alcohol and marijuana, which he previously used to deal with his anxiety and rumination. He also recently found out that his girlfriend is with their first child. 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 He has been having difficult falling and staying asleep due to rumination and intrusive thoughts. He has been having panic at tacks more frequently, approximately 3x/wk for the past 1 month, lasting 5-60 minutes each time; symptoms include WILLIS, dry mouth, clammy hands, SOB, dizziness, and a warmth that spreads my spine, to my neck, and into my head. IOP will help prevent further decompensation and promote gains.
--- NOTE | 2018-11-13 14:30 | BH.NOTE ---
BH: Inpatient Note - Notes Behavioral Health Inpatient Note: Per verbal order from Dr. Crum, the following medication refill was called into [facility] pharmacy in [place], [place] (on [address]): citalopram (Celexa) 10mg, 1.5 tabs (15mg) daily, #45 with 3 refills Client informed of same; he denies questions or concerns at this time. Ashlee Waters, MSN, RN
--- NOTE | 2018-11-13 14:54 | BH.DS ---
Discharge Summary - Demographics Date of Admission:: 11/03/18 Discharge Date: 11/13/18 Presenting Problems at Admission:: Pt referred by outpatient psychiatrist at [facility] due to worsening anxiety, obsessive thinking, and not functioning at baseline. Pt's obessive thinking resulted in pt quitting his job after 3 months. Pt endorsed obsessive thoughts with mental checking. Pt endorsed panic attacks, uncontrollable worry, racing thoughts, restlessness, and easily irritable. Discharge Diagnoses:: F 42.2 Obsessive-compulsive disorder with mixed obsessional thoughts and acts; KARLI; history of depression, inactive. Cannabis use disorder, in early remission; alcohol use disorder, in early remission; history of polysubstance abuse Reason for Discharge:: Pt has made signficiant progress since starting [facility] level of care and no longer needs this level of care. Pt's main complaint is OCD as a result pt will be discharging from [facility] and starting therapy with a outpatient counselor that specializes in Exposure Response Prevention therapy which has been found to be effective for OCD. - Treatment Progress During Treatment & Response: Pt has demonstrated progress with significant decrease in anxious symptoms as evidenced by self-report score on DSM 5 cross cutting measure. At intake on anxiety subscale pt scored a 10 out of 12 with 12 being severe and at discharge pt scored at 4 out of 12. Pt also made slight progress with reduction of obsessions and compulsions as evidenced by self-report score on DSM 5 cross cutting measure. At intake on OCD subscale pt scored a 6 out of 8, with 8 being severe, and at discharge pt scored a 5 out of 8. Pt also showed progress with improved self-awareness and understanding of intrusive thoughts and OCD. Pt has been able to successfully manage panic attacks by utilizing grounding and self-talk tools. Pt has stated he has an improved outlook on life, identifying hope that he can get better. Pt responded well to individual counseling sessions as evidenced by him completing homework and generalizing skills. Pt was a semi-active participant in group sessions, not as engaged compared to individual sessions. Pt did not find group sessions to be as applicable due to his main complaint of OCD which is what led to collaborative decision to discharge from program and go to a [facility] individual therapist. Issues Still to be Addressed:: Patient could benefit from learning strategies to help patient manage his obessional thoughts and mental checking behavior. Patient also could benefit from challenging and reframing distorted thought patterns and core beliefs. Discharge Recommendations/Instructions:: 1. Outpatient counseling at [facility] on 11/16/18. 2. Patient will contact [facility] when needs a medication refill or medication adjustment. Discharge Handout: Complete Discharge Handout with client on aftercare options and continuity of care.
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
--- NOTE | 2018-11-13 17:46 | BH.AFTERPLAN ---
Aftercare Plan - Demographics Treatment End Date:: 11/13/18 Psychiatrist:: Last Crum Psychiatrist Office #:: [phone] [facility] Therapist:: Carmen Abrams Therapist Phone #:: [phone] - Medications Home Medications: Home Medications Citalopram [Celexa] 15 mg PO DAILY 11/13/18 DiphenhydrAMINE [Benadryl] 25 - 50 mg PO QHS PRN PRN 11/13/18 Multivitamin [Daily Multiple Vitamin] 1 each PO DAILY 11/13/18 [place]-3 Fatty Acids/Fish Oil [Fish Oil 1,000 mg Capsule] 2 each PO DAILY 11/13/18 Vitamin B Complex [B Complex] 1 each PO DAILY 11/13/18 - Plan Details Progress/Aftercare Plan Details:: You have demonstrated progress with reporting improved self-awareness and understanding of intrusive thoughts and OCD. You have been able to successfully manage panic attacks by utilizing grounding and self-talk tools. You have improved outlook on life, identifying hope you can get better. Plan is for you to attend outpatient counseling with a ERP therapist to help with OCD symptoms. Also follow up with [facility] for medication management. Strategies for Success:: 1. Staying sober. 2. Not taking too many responsibilities on at once. 3. Utilizing coping and strategies to manage anxiety. 4. Self-care - need to take care of self in order to take care of others. 5. Setting realistic expectations - Appointments Appointments/Referrals to Other Services:: 1. Outpatient counseling at [facility] on Friday11/16/18. 2. Schedule with [facility] when need refill or medication adjustment.
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
--- NOTE | 2018-11-15 14:54 | BH.DS_ITS ---
Discharge Summary - Demographics Date of Admission:: 11/03/18 Discharge Date: 11/13/18 Presenting Problems at Admission:: Pt referred by outpatient psychiatrist at [facility] due to worsening anxiety, obsessive thinking, and not functioning at baseline. Pt's obessive thinking resulted in pt quitting his job after 3 months. Pt endorsed obsessive thoughts with mental checking. Pt endorsed panic attacks, uncontrollable worry, racing thoughts, restlessness, and easily irritable. Discharge Diagnoses:: F 42.2 Obsessive-compulsive disorder with mixed obsessional thoughts and acts; KARLI; history of depression, inactive. Cannabis use disorder, in early remission; alcohol use disorder, in early remission; history of polysubstance abuse Reason for Discharge:: Pt has made signficiant progress since starting [facility] level of care and no longer needs this level of care. Pt's main complaint is OCD as a result pt will be discharging from [facility] and starting therapy with a outpatient counselor that specializes in Exposure Response Prevention therapy which has been found to be effective for OCD. - Treatment Progress During Treatment & Response: Pt has demonstrated progress with significant decrease in anxious symptoms as evidenced by self-report score on DSM 5 cross cutting measure. At intake on anxiety subscale pt scored a 10 out of 12 with 12 being severe and at discharge pt scored at 4 out of 12. Pt also made slight progress with reduction of obsessions and compulsions as evidenced by self-report score on DSM 5 cross cutting measure. At intake on OCD subscale pt scored a 6 out of 8, with 8 being severe, and at discharge pt scored a 5 out of 8. Pt also showed progress with improved self-awareness and understanding of intrusive thoughts and OCD. Pt has been able to successfully manage panic attacks by utilizing grounding and self-talk tools. Pt has stated he has an improved outlook on life, identifying hope that he can get better. Pt responded well to individual counseling sessions as evidenced by him completing homework and generalizing skills. Pt was a semi-active participant in group sessions, not as engaged compared to individual sessions. Pt did not find group sessions to be as applicable due to his main complaint of OCD which is what led to collaborative decision to discharge from program and go to a [facility] individual therapist. Issues Still to be Addressed:: Patient could benefit from learning strategies to help patient manage his obessional thoughts and mental checking behavior. Patient also could benefit from challenging and reframing distorted thought patterns and core beliefs. Discharge Recommendations/Instructions:: 1. Outpatient counseling at [facility] on 11/16/18. 2. Patient will contact [facility] when needs a medication refill or medication adjustment. Discharge Handout: Complete Discharge Handout with client on aftercare options and continuity of care.
--- NOTE | 2018-11-15 17:52 | BH.IGGP_ITS ---
Aftercare Plan - Demographics Treatment End Date:: 11/13/18 Psychiatrist:: [facility] Office #:: [phone] [facility] Therapist:: Carmen Abrams Therapist Phone #:: [phone] - Medications Home Medications: Home Medications Citalopram [Celexa] 15 mg PO DAILY 11/13/18 DiphenhydrAMINE [Benadryl] 25 - 50 mg PO QHS PRN PRN 11/13/18 Multivitamin [Daily Multiple Vitamin] 1 each PO DAILY 11/13/18 [place]-3 Fatty Acids/Fish Oil [Fish Oil 1,000 mg Capsule] 2 each PO DAILY 11/13/18 Vitamin B Complex [B Complex] 1 each PO DAILY 11/13/18 - Plan Details Progress/Aftercare Plan Details:: You have demonstrated progress with reporting improved self-awareness and understanding of intrusive thoughts and OCD. You have been able to successfully manage panic attacks by utilizing grounding and self-talk tools. You have improved outlook on life, identifying hope you can get better. Plan is for you to attend outpatient counseling with a [facility]P therapist to help with OCD symptoms. Also follow up with [facility] for medication management. Strategies for Success:: 1. Staying sober. 2. Not taking too many responsibilities on at once. 3. Utilizing coping and strategies to manage anxiety. 4. Self-care - need to take care of self in order to take care of others. 5. Setting realistic expectations - Appointments Appointments/Referrals to Other Services:: 1. Outpatient counseling at [facility] on Friday11/16/18. 2. Schedule with [facility] when need refill or medication adjustment.
== END 2018-11-19 23:59 ==
LOC: BHPHP 09:00
PROVIDERS: Family Provider Family Medicine; PCP Family Medicine; Referring Provider Psychiatry & Neurology Psychiatry; Visit Provider Psychiatry & Neurology Psychiatry
DX: F42.9 Obsessive-compulsive disorder, unspecified (principal); F41.1 Generalized anxiety disorder; F32.9 Major depressive disorder, single episode, unspecified; F12.90 Cannabis use, unspecified, uncomplicated; F10.20 Alcohol dependence, uncomplicated
CPT/HCPCS: H0035; 90834; 90837; G0410